=== PATIENT | female | born 1945 | race Caucasian/White ===

== ENCOUNTER → 2024-10-16 07:19 | Outpatient (REF) | payer MEDICARE, OTHER, SELFPAY ==
[2024-10-16 07:50] VITALS: BP 149/57; BP_SYST 44
[2024-10-16 08:14] LABS: INR 2.36; PT 26.3 Sec (11.4-14.6)
[2024-10-16 08:50] VITALS: BP 149/57
== END ==
LOC: RADI 07:19
PROVIDERS: ATTENDING PHYSICIAN Internal Medicine Endocrinology, Diabetes & Metabolism; FAMILY PHYSICIAN Family Medicine
DX: E04.1 Nontoxic single thyroid nodule (principal)
CPT/HCPCS: 88173; 10005; 36415; 85610

== ENCOUNTER → 2025-04-28 10:11 | Outpatient (REF) | payer MEDICARE, OTHER, SELFPAY | LOC: RAD 10:11 | PROVIDERS: ATTENDING PHYSICIAN Nurse Practitioner Family; FAMILY PHYSICIAN Family Medicine | DX: E04.1 Nontoxic single thyroid nodule (principal) | CPT/HCPCS: 76536 ==